=== PATIENT | female | born 1960 | race Caucasian/White ===

== ENCOUNTER 2023-10-01 07:42 | Day surgery (SDC) | payer OTHER ==
[~2023-10-01] VITALS: Ht 160 cm; Wt 68.2 kg
[~2023-10-01 07:42] MED LIST: BUPR1FIL3 SL; DULO-114 PO; SODIUM CHLORIDE 0.9% 1,000 ML IV ONE
[2023-10-01] MEDS ORDERED: PROPOFOL 1% ISO-OSM 1000 MG/100 ML BOTTLE IV ONE (07:43)
[2023-10-01] MEDS ORDERED: PROPOFOL 1% 20 ML VIAL IVP ONE (07:43)
[2023-10-01] MEDS ORDERED: LIDOCAINE/PF 2% 5 ML SYRINGE IVP ONE (07:43)
[2023-10-01] MEDS ORDERED: SODIUM CHLORIDE 0.9% 1,000 ML ONE (07:49)
[2023-10-01] MEDS ORDERED: ZALE5CAP6 PO (08:16)
[2023-10-01] MEDS ORDERED: OLAN10TA74 PO (08:16)
[2023-10-01] MEDS ORDERED: RISP0.5T66 PO (08:16)
[2023-10-01] MEDS ORDERED: CLON-592 PO (08:16)
[2023-10-01] MEDS ORDERED: SULF-261 PO (08:16)
[2023-10-01] MEDS ORDERED: SUVO20TA PO (08:16)
[2023-10-01] MEDS ORDERED: QUET25TA PO (08:16)
[2023-10-01] MEDS ORDERED: NALO25TA4 PO (08:16)
[2023-10-01] MEDS ORDERED: TIOT185 IH (08:16)
[2023-10-01] MEDS ORDERED: MOME13HF12 IH (08:16)
[2023-10-01] MEDS ORDERED: CHLO473M6 PO (08:16)
[2023-10-01] MEDS ORDERED: OXYGEN THERAPY IH SCH (20:00)
== END 2023-10-01 10:50 | disposition home or self-care (01) ==
LOC: SURGERY 07:42
PROVIDERS: ATTEND Specialist
DX: C20 Malignant neoplasm of rectum (principal); K26.9 Duodenal ulcer, unspecified as acute or chronic, without hemorrhage or perforation; D80.2 Selective deficiency of immunoglobulin A [IgA]; K29.70 Gastritis, unspecified, without bleeding; F41.9 Anxiety disorder, unspecified; F32.A Depression, unspecified; Z98.890 Other specified postprocedural states; Z79.899 Other long term (current) drug therapy; Z86.010 Personal history of colon polyps; G89.29 Other chronic pain; Z80.0 Family history of malignant neoplasm of digestive organs; Z82.49 Family history of ischemic heart disease and other diseases of the circulatory system; D64.9 Anemia, unspecified
CPT/HCPCS: 45380; 43239; C1769; J2704 ×2; J3490; J7030